=== PATIENT | female | born 1945 | race Two or more races ===

== ENCOUNTER 2024-10-13 05:43 | Emergency (ER) | payer MEDICARE, MEDICAID, SELFPAY ==
[2024-10-13 05:43] VITALS: BP 156/83; PULSE 80; RESP 17; TEMP 37.2; O2SAT 98; BMI 26.4
--- NOTE | 2024-10-13 06:30 | EDNOTE_ITS ---
ED Neck Injury Pain RME/HPI General Chief Complaint: Neck Pain/Injury Stated Complaint: RIGHT NECK, SHOULDER PAIN Time Seen by Provider: 10/13/24 06:25 Arrival date/time: 10/13/24 05:43 79-year-old female reports with complaints of right-sided neck pain that began yesterday. Patient denies any injury or trauma denies any heavy lifting pushing or pulling. Patient states that she has been taking ibuprofen with minimal relief of symptoms. Patient denies any shortness of breath or chest pain jaw pain or limb pain. She denies decreased range of motion of upper extremities numbness or tingling. Limitations: no limitations Related Data Home Medications ?Medication ?Instructions ?Recorded ?Confirmed Levothyroxine * (SYNTHROID *) 25 mcg PO QDAY #0 tabs 11/19/14 04/20/19 lisinopril 20 mg tablet 10 - 12.5 mg PO QDAY #0 tabs 11/19/14 04/20/19 meloxicam 15 mg tablet 15 mg PO PRN PRN pain 04/20/19 04/20/19 metformin 500 mg tablet 500 mg PO QDAY 04/20/19 04/20/19 Allergies Allergy/AdvReac Type Severity Reaction Status Date / Time hydrocodone Allergy Severe Swelling Verified 04/20/19 10:03 of Lip/Tongue/Throat Review of Systems Constitutional Constitutional: Denies chills and Denies fever(s) ENT Ears, Nose, Mouth, and Throat: Reports neck pain Cardiovascular Cardiovascular: Denies chest pain, Denies dyspnea and Denies syncope Respiratory Respiratory: Denies cough and Denies dyspnea Musculoskeletal Musculoskeletal: Denies myalgias, Reports neck pain and Denies tingling Integumentary/Breasts Skin/Breast: Denies rash and Denies skin pain Neurologic Neurologic: Denies behavioral changes, Denies syncope and Denies tingling Psychiatric Psychiatric: Denies behavioral changes and Denies change in appetite Past Medical History Past Medical History CARDIAC: Positive Hypertension; Negative Congestive Heart Failure RESPIRATORY: Negative Chronic Obstructive Pulmonary Disease (COPD) GENITOURINARY: Negative Renal Disease REPRODUCTIVE: Positive Previous Pregnancies ENDOCRINE: Positive Diabetes Mellitus Type 2 and Hypothyroidism; Negative Diabetes Mellitus Type 1 Surgical History SURGICAL: Positive Hysterectomy and Section Social History SMOKING STATUS: Never smoker SUBSTANCE USE: does not use ED Exam General Limitations: Present no limitations General appearance: Present alert and in no apparent distress Head Head exam: Present atraumatic Neck Neck exam: Present normal inspection and other (spasm palpated of right sternocledomastoid); Absent full ROM Chest Chest inspection: Present normal inspection and symmetric chest wall rise Respiratory Respiratory exam: Present normal lung sounds bilaterally Cardiovascular Cardiovascular exam: Present regular rate, normal rhythm and normal heart sounds Extremities Exam Extremities exam: Present normal inspection and full ROM; Absent tenderness Back Exam Back exam: Present normal inspection and full ROM Neurological Exam Neurological exam: Present alert, oriented X3 and CN II-XII intact Psychiatric Psychiatric exam: Present normal affect and normal mood Skin Skin exam: Present warm, dry, intact and normal color Course Quality Measures none Vital Signs Vital signs: Vital Signs Temperature 99.0 F 10/13/24 05:43 Pulse Rate 80 10/13/24 05:43 Respiratory Rate 17 10/13/24 05:43 Blood Pressure 156/83 H 10/13/24 05:43 Pulse Oximetry (%) 98 10/13/24 05:43 Oxygen Delivery Method Room Air 10/13/24 05:43 Neck Pain Patient data External records reviewed:: None Clinical information provided by:: patient Social determinants that could affect healthcare access:: none Patient has the following chronic illnesses:: none How is presenting disease/condition affected by chronic disease/condition?: no chronic disease Evaluation data The following diagnostics were reviewed and interpreted by me:: other (specify) (none) Lab and/or radiology exams considered but not ordered:: cervical xray Interpretation Summary: n/a Medications / Prescriptions Medications or Prescriptions considered but not ordered:: none Medication administrations:: Toradol 30 mg IM Consultations Consultation(s) initiated? (list below): No Diagnosis Neck Differential Diagnosis: whiplash injury to neck, torticollis and strain of neck muscle Most likely diagnosis given after review of the tests above:: Cervical neck strain Admission Indicated Admission indicated?: not indicated Admission Request Was there a request for admission?: No Disposition Plan Disposition Plan: Discharge Discharge Attestation Discharge Attestation: The patient and all family members were given an opportunity to ask questions and understood the discharge instructions. Discharge instructions specifically effects, indications for sooner follow up or return to the emergency department, and the expected course of current diagnosis. Patient condition: Stable Discharge Plan Plan Patient Disposition: HOME (Self Care) Prescriptions/Referrals Prescriptions/Med Rec: No Action lisinopril 20 MG tablet 10 - 12.5 mg PO QDAY Qty: 0 Levothyroxine * (SYNTHROID *) 75 MCG tablet 25 mcg PO QDAY Qty: 0 Rx Instructions: take 1/2 tab metformin 500 mg Tablet 500 mg PO QDAY meloxicam 15 mg Tablet 15 mg PO PRN PRN (Reason: pain) Problem List Clinical Impression: Strain of neck muscle Patient/Caregiver Discharge Instructions Education Materials: ED Neck Sprain or Strain Additional Instructions: Your pain is caused by strain of your muscle tissue in your neck. Doing stretching techniques as discussed at your visit today as well as applying ice for 20 min 2-3 times daily will help decrease pain. Sleep with a neck pillow or folded towel/blanket around neck for support. Use medications as directed hydrate well, and follow with your primary care provider if symptoms do not improve in 5 to 7 days Print Language: [place] Stand Alone Forms: Jennifer Award Info., Patient Portal Info Letter
[2024-10-13] MEDS: KETOROLAC INJ 60 MG/2 ML VIAL 30 MG IM (06:35)
== END 2024-10-13 06:49 | disposition home or self-care (01) ==
LOC: SERX 06:49
PROVIDERS: Emergency Provider Emergency Medicine; PCP Family Medicine
DX: S16.1XXA Strain of muscle, fascia and tendon at neck level, initial encounter (principal); X58.XXXA Exposure to other specified factors, initial encounter
CPT/HCPCS: 96372; 99283; J1885

== ENCOUNTER → 2025-02-18 | Outpatient (CLI) | payer MEDICARE, MEDICAID, SELFPAY ==
--- NOTE | 2025-02-18 | XR_ITS ---
Examination: Diagnostic digital mammography, bilateral Computer aided detection 3-D breast Tomosynthesis, bilateral Date and time of exam: February 18, 2025 1133 hours INDICATIONS: Left breast pain 4 months Technique: Nonmagnified MLO, CC views of the breasts to been obtained, reconstructed from 3-D Tomosynthesis images. R2 computer aided detection program utilized for evaluation of suspicious masses and/or abnormal calcifications. 3-D Tomosynthesis images obtained. Findings: The breasts are heterogeneously dense, which may obscure small masses Benign calcifications. No interval suspicious masses Impression: BI-RADS Category 2: Benign findings Recommend yearly follow-up mammography:.
--- NOTE | 2025-02-18 11:00 | XR_ITS ---
Examination: Breast ultrasound, unilateral, left complete Date and time of exam: February 19, 2000 2514 hours INDICATIONS: Left breast tenderness beginning 4 months ago Technique: Real-time francois scale ultrasonographic imaging performed left breast including all 4 quadrants as well as nipple retroareolar and axillary region. Findings: 8:00 cyst 7 x 6 mm 21 mm left axillary lymph node No solid nodules IMPRESSION: BI-RADS Category 2: Benign findings
== END | disposition home or self-care (01) ==
PROVIDERS: PCP Physician Assistant; Referring Provider Physician Assistant; Visit Provider Physician Assistant
DX: R92.323 Mammographic fibroglandular density, bilateral breasts (principal); R92.1 Mammographic calcification found on diagnostic imaging of breast; N60.02 Solitary cyst of left breast
CPT/HCPCS: 76641; 77062; 77066; G0279

== ENCOUNTER → 2025-10-17 | Outpatient (CLI) | payer MEDICARE, MEDICAID, SELFPAY ==
--- NOTE | 2025-10-17 14:00 | XR_ITS ---
Examination: Breast ultrasound, unilateral, left complete Date and time of exam: October 17, 2025, 1423 hours INDICATIONS: Breast cystic disease on ultrasound February 18, 2025, history left breast pain Technique: Real-time francois scale ultrasonographic imaging performed left breast including all 4 quadrants as well as nipple retroareolar and axillary region. Findings: 8:00 intramammary lymph node 6 x 3 mm 28 mm left axillary lymph node IMPRESSION: BI-RADS Category 2: Benign findings
== END | disposition home or self-care (01) ==
LOC: CDIM 14:07
PROVIDERS: PCP Physician Assistant; Referring Provider Physician Assistant; Visit Provider Physician Assistant
DX: R92.8 Other abnormal and inconclusive findings on diagnostic imaging of breast (principal)
CPT/HCPCS: 76641